=== PATIENT | female | born 1995 | race Caucasian/White ===

== ENCOUNTER 2017-01-19 10:05 | Emergency (ER) | payer OTHER ==
[2017-01-19] MEDS ORDERED: diPHENhydraMINE IV* 50 MG/ML 1 ml VIAL (BENADRYL) IV ONE (10:12)
[2017-01-19] MEDS ORDERED: diPHENhydraMINE IV* 50 MG/ML 1 ml VIAL (BENADRYL) IM ONE (10:12)
[2017-01-19] MEDS ORDERED: Dexamethasone IV* 4 MG/ML 1 ML (4 MG) IV SLOW PU ONE (10:12)
[2017-01-19] MEDS ORDERED: methylPREDNISolone 125 MG* 2 ML VIAL IV ONE (10:12)
[2017-01-19] MEDS ORDERED: Famotidine IV* 10 MG/ML 2 ML (20 mg) IV SLOW PU ONE ×2 (10:12)
--- NOTE | 2017-01-19 10:45 | ED ---
Allergic Reaction/Systemic - HPI Summary HPI Summary: 21F presents with allergic reaction today. she states that she noticed some red itchy spots on body last night. She states she woke up very ithcy at 6am but face was normal. She went back to sleep and woke up at 9am and her lips and around her eyes and ear were swollen. She denies any chest pain, SOB, difficulty swallowing, nausea, vomiting, or abdominal pain. She has had this happen before with PCN but she is not currently on antibiotics. She states only thing new was had hamburger helper last night for first time. She denies any new products or shampoos. she has not taken anything yet. - History of Current Complaint Chief Complaint: EDAllergicReaction Time Seen by Provider: 01/19/17 10:11 Pain Intensity: 0 - Allergies/Home Medications Allergies/Adverse Reactions: Allergies Allergy/AdvReac Type Severity Reaction Status Date / Time Penicillins [PCN] Allergy Severe Eyes Verified 01/19/17 10:11 Itchy/Swollen/Red/Watery PMH/Surg Hx/FS Hx/Imm Hx Endocrine/Hematology History: Denies: Hx Anticoagulant Therapy Cardiovascular History: Denies: Hx Hypertension Infectious Disease History: No Infectious Disease History: Denies: Traveled Outside the [place] in Last 30 Days - Family History Known Family History: Negative: Respiratory Disease - Social History Alcohol Use: None Substance Use Type: Reports: None Smoking Status (MU): Never Smoked Tobacco Review of Systems Negative: Fever Positive: Other - swelling face Negative: Chest Pain Negative: Shortness Of Breath Positive: Rash All Other Systems Reviewed And Are Negative: Yes Physical Exam Triage Information Reviewed: Yes Vital Signs On Initial Exam: Initial Vitals Temp Pulse Resp BP Pulse Ox 97.1 F 78 16 114/72 100 01/19/17 10:07 01/19/17 10:07 01/19/17 10:07 01/19/17 10:07 01/19/17 10:07 Vital Signs Reviewed: Yes Appearance: Positive: Well-Appearing Skin: Positive: Warm, Dry, Other - urticaria across body Head/Face: Positive: Other - swelling lips, around eyes, and left ear Eyes: Positive: Normal, EOMI, CARMEN, Conjunctiva Clear ENT: Positive: Pharynx normal, TMs normal Neck: Positive: Supple, Nontender, No Lymphadenopathy Respiratory/Lung Sounds: Positive: Clear to Auscultation, Breath Sounds Present Cardiovascular: Positive: Normal, RRR Abdomen Description: Positive: Nontender, Soft Bowel Sounds: Positive: Present Musculoskeletal: Positive: Normal Neurological: Positive: Normal Psychiatric: Positive: Normal Diagnostics - Vital Signs Vital Signs Temp Pulse Resp BP Pulse Ox 01/19/17 10:07 97.1 F 78 16 114/72 100 - Laboratory Lab Statement: Any lab studies that have been ordered have been reviewed, and results considered in the medical decision making process. Re-Evaluation - Re-Evaluation First Eval Re-Evaluation Time: 11:25 Change: Improved Comment: patient is currently sleep, edema in lips decreased Second Eval Re-Evaluation Time: 12:42 Change: Improved Comment: feeling better, edema decreased. lungs CTA. Allergic Reaction Course/Dx - Course Course Of Treatment: 21F presents with allergic reaction today. she states that she noticed some red itchy spots on body last night. She states she woke up very ithcy at 6am but face was normal. She went back to sleep and woke up at 9am and her lips and around her eyes and ear were swollen. She denies any chest pain, SOB, difficulty swallowing, nausea, vomiting, or abdominal pain. She has had this happen before with PCN but she is not currently on antibiotics. She states only thing new was had hamburger helper last night for first time. She denies any new products or shampoos. she has not taken anything yet. on exam has urticaria across body. has edema to lips, and near eyes. lungs CTA, pharynx normal. gave bendaryl, steriod, and famotidine and swelling decreased. will discharge with prednisone. told to have bendaryl. warned of signs to return to ED for. patient understand and agrees with plan. - Diagnoses Differential Diagnosis/HQI/PQRI: Positive: Angioedema, Local Allergic Reaction, Urticaria Provider Diagnoses: Allergic reaction Discharge - Discharge Plan Condition: Good Disposition: HOME Prescriptions: predniSONE TAB* [Deltasone TAB*] 60 mg PO DAILY #4 tab Patient Education Materials: General Allergic Reaction (ED) [facility] [Primary Care Provider] - Additional Instructions: Take Benadryl every 6 hours for at least next 24 hours Can apply cream with hydrocortisone to area for itchy Take ibuprofen every 6 hours for pain take steroid once a day for next 4 days Return to ED if develop shortness of breath, difficulty swallowing or any new or worsening symptoms
[2017-01-19 13:00] VITALS: BP 124/78
== END 2017-01-19 13:08 | disposition home or self-care (01) ==
LOC: ED 10:05
DX: T78.40XA Allergy, unspecified, initial encounter (principal); X58.XXXA Exposure to other specified factors, initial encounter; Z88.0 Allergy status to penicillin; Y92.9 Unspecified place or not applicable
CPT/HCPCS: 96372; 96374; 96375; 99282; J1100; J1200